=== PATIENT | female | born 1950 | race Caucasian/White ===

== ENCOUNTER 2021-02-10 07:54 | Day surgery (SDC) | payer MEDICARE, BC ==
[~2021-02-10] VITALS: Ht 160 cm; Wt 79.3 kg
[~2021-02-10 07:54] MED LIST: ASPI81TA26 PO; CALC500T68 PO; ERGO500029 PO; JANU100T PO; LEVE1INJ5 SC; LR 1,000 ML IV ONE; MAGN400C2 PO; ROSU5TAB5 PO; URSO1TAB8 PO; VITA-175 PO; VITA1TAB61 PO
[2021-02-10] MEDS ORDERED: propofoL 200 MG/20 ML VIAL As Ordered ONE (08:25)
[2021-02-10] MEDS ORDERED: ROCURONIUM BROMIDE 50 MG/5 ML VIAL As Ordered ONE (08:25)
[2021-02-10] MEDS ORDERED: LIDOCAINE 2% 100MG/5ML SDV (FOR ANES.) As Ordered ONE (08:25)
[2021-02-10] MEDS ORDERED: ONDANSETRON 4MG/2ML VIAL As Ordered ONE (08:25)
[2021-02-10] MEDS ORDERED: dexameTHASONE 4 MG/ML 1ML VIAL (J1100 PER 1MG) As Ordered ONE (08:25)
[2021-02-10] MEDS ORDERED: fentaNYL 100 MCG/2 ML INJECTION (J3010) As Ordered ONE (08:26)
[2021-02-10] MEDS ORDERED: MIDAZOLAM INJ 2MG/2ML VIAL (J2250 PER 1MG) As Ordered ONE (08:26)
[2021-02-10] MEDS ORDERED: ALBUTEROL SULFATE 2.5 MG/0.5 ML INH NEB SOLN INH ONE (08:30)
[2021-02-10] MEDS ORDERED: LIDOCAINE 4% INJ 5ML AMP NEB ONE (08:35)
[2021-02-10] MEDS ORDERED: LIDOCAINE 2% JELLY 5ML TUBE As Ordered ONE (08:52)
[2021-02-10] MEDS ORDERED: SEVOFLURANE INHAL SOLN 250 ML BTL As Ordered ONE (08:55)
[2021-02-10] MEDS ORDERED: SUGAMMADEX SODIUM 500 MG/5 ML VIAL (BRIDION) As Ordered ONE (09:04)
[2021-02-10] MEDS ORDERED: THROMBIN SOLN 5,000 UNITS VIAL As Ordered ONE (09:05)
[2021-02-10] MEDS ORDERED: EPINEPHrine 1MG/10ML SYRINGE 1.5IN As Ordered ONE (09:06)
[2021-02-10] MEDS ORDERED: CETACAINE SPRAY 5GM As Ordered ONE (09:06)
[2021-02-10] MEDS ORDERED: PHENYLephrine 500MCG 5ML (100MCG/ML) SYRINGE As Ordered ONE (09:40)
[2021-02-10] MEDS ORDERED: METOCLOPRAMIDE INJ 10MG/2ML VIAL (J2765 PER 1) As Ordered ONE (09:50)
[2021-02-10] MEDS ORDERED: ESMOLOL INJ 100MG/10ML VIAL As Ordered ONE (10:01)
--- NOTE | 2021-02-10 10:27 | ROOR ---
Patient Name: Cindy Mack Procedure Date: 02/10/2021 8:48 AM Date of : 1950 Admit Type: Outpatient Age: 70 Note Status: Finalized Attending MD: Lilly Campa MD Procedure: Bronchoscopy Indications: Bilateral hilar lymphadenopathy, Mediastinal adenopathy, Abnormal CT scan of chest Providers: Lilly Campa MD (Doctor) Referring MD: 1. NO/Unknown PCP 1. NO/Unknown PCP, Admin. (Referring MD) Requesting Physician: Medicines: Lidocaine 4% via nebulizer with Albuterol 2.5 mg, General Anesthesia, Cetacaine topical Complications: No immediate complications. Estimated blood loss: Minimal Procedure: Pre-Anesthesia Assessment: - Prior to the procedure, a History and Physical was performed, and patient medications and allergies were reviewed. The patient's tolerance of previous anesthesia was also reviewed. The risks and benefits of the procedure and the sedation options and risks were discussed with the patient. All questions were answered, and informed consent was obtained. Prior Anticoagulants: The patient has taken no previous anticoagulant or antiplatelet agents. ASA Grade Assessment: II - A patient with mild systemic disease. After reviewing the risks and benefits, the patient was deemed in satisfactory condition to undergo the procedure. The Bronchoscope was introduced through the mouth, via the endotracheal tube (the patient was intubated for the procedure) and advanced to the tracheobronchial tree of both lungs. The procedure was accomplished without difficulty. The patient tolerated the procedure well. Findings: The endotracheal tube is in good position. The visualized portion of the trachea is of normal caliber. The heidi is mildly splayed. The tracheobronchial tree was examined to at least the first subsegmental level. There were no endobronchial lesions noted. The bronchial mucosa appeared edematous friable. There were areas that appeared to have erythema in mucosa prior to suction trauma particularly in the RML and ROBBIN. There were white mucoid secretions noted. An endobronchial ultrasound endoscope was utilized in order to assist with fine needle aspiration in the subcarinal area and in the left hilum. The right hilar lymph node was enlarged but not as easily accessible with FNA. Transbronchial needle aspirations of lymph nodes were performed in the subcarinal area and in the left hilum using an Olympus EBUS-TBNA 21 gauge needle and sent for routine cytology. The procedure was guided by ultrasound. Transbronchial needle aspiration technique was selected because the sampling site was not visible endoscopically. Bronchoalveolar lavage was performed in the right middle lobe of the lung and sent for bacterial, AFB and fungal analysis. The return was blood-tinged. Sequential BAL aliquots did not have increasingly hemorrhagic return. Mucous plugs were present in the return fluid. Multiple specimens were obtained and pooled into one specimen, which was sent for analysis. Bronchoalveolar lavage was performed in the ROBBIN anterior segment (B3) of the lung and sent for routine cytology and bacterial, AFB and fungal analysis. The return was cloudy. Mucous plugs were present in the return fluid. Impression: - Bilateral hilar lymphadenopathy - Mediastinal adenopathy - Abnormal CT scan of chest - The airway examination showed edematous and friable mucosa, no endobronchial lesions. - Endobronchial ultrasound was performed. - A transbronchial needle aspiration was performed. - Bronchoalveolar lavage was performed. - Bronchoalveolar lavage was performed. Recommendation: - Await test results. Procedure Code(s): --- Professional --- 46614, Bronchoscopy, rigid or flexible, including fluoroscopic guidance, when performed; with transbronchial needle aspiration biopsy(s), trachea, main stem and/or lobar bronchus(i) 28956, Bronchoscopy, rigid or flexible, including fluoroscopic guidance, when performed; with bronchial alveolar lavage 21544, Bronchoscopy, rigid or flexible, including fluoroscopic guidance, when performed; with transendoscopic endobronchial ultrasound (EBUS) during bronchoscopic diagnostic or therapeutic intervention(s) for peripheral lesion(s) (List separately in addition to code for primary procedure[s]) CPT copyright 2019 [employer] [place] [employer]. All rights reserved. The codes documented in this report are preliminary and upon auditing coder review may be revised to meet current compliance requirements. Attending Participation: I personally performed the entire procedure. Lilly Campa MD 02/10/2021 10:27:09 AM Number of Addenda: 0 Note Initiated On: 02/10/2021 8:48 AM
[2021-02-10] MEDS ORDERED: ONDANSETRON 4MG/2ML VIAL IV PRN (10:30)
[2021-02-10] MEDS ORDERED: LR 1,000 ML IV SCH (10:30)
[2021-02-10] MEDS ORDERED: oxyCODONE 5MG TAB PO PRN (10:30)
[2021-02-10] MEDS ORDERED: fentaNYL 100 MCG/2 ML INJECTION (J3010) IV PRN (10:30)
[2021-02-10] MEDS ORDERED: HYDROMORPHONE HCL 0.5 MG/ 0.5 ML SYRINGE (J1170 PER 1) IV PRN (10:30)
--- NOTE | 2021-02-10 10:55 | REP ---
INDICATION: POST OP IN PACU. COMPARISON: None. TECHNIQUE: Portable FINDINGS: The technique utilized in obtaining the radiograph has magnified the cardiac silhouette and attenuated the interstitial markings. The cardiomediastinal silhouette is within normal limits. The heart is not enlarged. Lung nagel are clear. There is mild elevation of the diaphragmatic surface of the right lung. Pleural angles are sharp. The osseous structures are within normal limits. IMPRESSION: There is no evidence of acute cardiopulmonary disease. <Electronically signed by Mkie Valadez > 02/10/21 [id number]
[2021-02-10 11:00] VITALS: BP 143/67
== END 2021-02-10 11:32 | disposition home or self-care (01) ==
LOC: M SDC 07:54
PROVIDERS: ATTEND Internal Medicine Pulmonary Disease
DX: R91.8 Other nonspecific abnormal finding of lung field (principal); R59.0 Localized enlarged lymph nodes; N63.20 Unspecified lump in the left breast, unspecified quadrant; E78.00 Pure hypercholesterolemia, unspecified; E11.9 Type 2 diabetes mellitus without complications; K74.60 Unspecified cirrhosis of liver; M19.90 Unspecified osteoarthritis, unspecified site; K21.9 Gastro-esophageal reflux disease without esophagitis; F41.9 Anxiety disorder, unspecified; Z92.21 Personal history of antineoplastic chemotherapy; Z92.3 Personal history of irradiation; Z85.3 Personal history of malignant neoplasm of breast; K75.81 Nonalcoholic steatohepatitis (NASH); E83.119 Hemochromatosis, unspecified; L40.50 Arthropathic psoriasis, unspecified; G47.00 Insomnia, unspecified; Z98.82 Breast implant status; Z88.2 Allergy status to sulfonamides; Z79.899 Other long term (current) drug therapy; Z79.82 Long term (current) use of aspirin; Z79.84 Long term (current) use of oral hypoglycemic drugs; Z79.4 Long term (current) use of insulin; Z86.16 Personal history of COVID-19
CPT/HCPCS: 31624; 31629; 31652; 31654; 71045; 87070; 87102; 87116; 87205; 87206; 88108; 88173; 88305; 88313; J1100; J2250; J2370; J2405; J2765; J3010